=== PATIENT | female | born 1990 | race Caucasian/White ===

== ENCOUNTER 2017-02-08 09:40 | Outpatient (CLI) | payer OTHER ==
[~2017-02-08] VITALS: Ht 162.6 cm; Wt 82.8 kg
[~2017-02-08 09:40] MED LIST: IBUP-1542 PO; PREN1TAB74 PO
[2017-02-08 09:57] VITALS: BP 116/72; PULSE 78; Ht 162.6 cm; Wt 82.8 kg
[2017-02-08 11:37] LABS: ADD UMIC YES; UR ASCORBIC ACID NEGATIVE (NEGATIVE); UR BACTERIA FEW /HPF (NONE SEEN); UR BILIRUBIN (Dip) NEGATIVE (NEGATIVE); UR BLOOD (Dip) 2+ mg/dL (NEGATIVE); UR CLARITY SLIGHTLY CLOUDY (CLEAR); UR COLOR YELLOW (YELLOW); UR GLUCOSE (Dip) NEGATIVE (NEGATIVE); UR KETONES (Dip) NEGATIVE (NEGATIVE); UR LEUKOCYTE ESTERASE (Dip) NEGATIVE Leu/ul (NEGATIVE); UR MUCUS FEW /HPF (NONE SEEN); UR NITRITE (Dip) NEGATIVE (NEGATIVE); UR RBC 2 /HPF (0-5); UR SPECIFIC GRAVITY (Dip) 1.023 (1.003-1.030); UR SQUAMOUS EPITHELIAL CELL MODERATE /HPF (FEW); UR TOTAL PROTEIN (Dip) 1+ mg/dl (NEGATIVE); UR UROBILINOGEN (Dip) NEGATIVE (NEGATIVE)
--- NOTE | 2017-02-08 12:35 | RADRPT ---
PROCEDURE: US evaluation of placenta. CLINICAL INDICATION: . Vaginal bleeding. TECHNIQUE: Multiple sonographic images of the gravid uterus were obtained utilizing oh-scale ramonita ging. Sagittal and transverse images were obtained. The images were reviewed on a PACS workstation . The placenta was evaluated. COMPARISON: No prior studies are available for comparison. FINDINGS: There is a single live intrauterine . heart rate is 168 beats per minute. Position is cephalic and placenta is posterior grade II. There is no placenta previa or abruption. IMPRESSION: 1. Placenta is posterior grade II with no abruption or previa. RPTAT: QQ .Anthony Haile MD, MD Date Time Electronically viewed and signed by .Anthony Haile MD, on 02/08/2017 12:34 .R/
--- NOTE | 2017-02-08 14:56 | CONS ---
Date/Time of Note Date/Time of Note DATE: 02/08/17 TIME: 14:50 Consultation Date/Type/Reason Admit Date/Time February 08, 2017 OB triage consult Reason for Consultation This patient is a 26 years old 2 para 1 with estimated date of confinement of March 26, 2017 which makes her 33 weeks and 3 days today She came to triage complaining of a slight vaginal bleeding no complaint of pain contractions. So for her was uneventful On examination she is a well-developed well-nourished woman in her late stage her vital signs are basically normal with blood pressure 116/70, 2 pulse rate 78 respiration 18 and temperature 98.1,,, Laboratory Tests Test 02/08/17 10:00 Urine Color YELLOW Urine Clarity SLIGHTLY CLOUDY Urine pH 7.0 Urine Specific [place] 1.023 Urine Ketones NEGATIVEmg/dL Urine Nitrite NEGATIVEmg/dL Urine Bilirubin NEGATIVEmg/dL Urine Urobilinogen NEGATIVEmg/dL Urine Leukocyte Esterase NEGATIVELeu/ul Urine Microscopic RBC 2/HPF Urine Microscopic WBC 2/HPF Urine Squamous Epithelial Cells MODERATE/HPF Urine Bacteria FEW/HPF Urine Mucus FEW/HPF Urine Hemoglobin 2+mg/dL Urine Glucose NEGATIVEmg/dL Urine Total Protein 1+mg/dl Eyes: No discharge, No no complaints, No other, No pain, No redness, No visual change ENT: No bleeding, No congestion, No discharge, No dysphagia, No no complaints, No other, No pain, No sore throat Respiratory: No cough, No no complaints, No other, No pain, No pleuritic pain, No shortness of breath, No sputum, No wheezing Cardiovascular: No chest pain, No edema, No lightheadedness, No no complaints, No orthopenea, No other, No palpitations, No paroxysmal nocturnal dyspnea Gastrointestinal: No blood, No constipation, No decreased appetite, No diarrhea , No flatus, No nausea, No no complaints, No other, No pain, No passing stool, No vomiting Genitourinary: other (Pelvic examination was not performed due to possibility of placenta previa), No bleeding, No discharge, No dysuria, No flank pain, No hematuria, No no complaints Musculoskeletal: No back pain, No bone/joint pain, No neck pain, No no complaints, No other, No restricted range of motion, No swelling Skin: No bruising, No erythema, No laceration, No no complaints, No other, No pruritis, No rash, No skin lesions Neurologic: other (Knee-jerk reflexes normal), No confusion, No dizziness, No focal-weakness, No headache, No no complaints , No seizure, No syncope Endocrine: No dry skin, No no complaints, No other, No polydypsia, No polyuria , No temp intolerance Lymphatic: No adenopathy, No lymphadema, No no complaints, No other, No tender nodes Additional Comments We ordered a urinalysis result is basically normal with 1+ protein and 2+ blood which is which is the patient's main complaint other part of the tests of the urinalysis was reported normal. On ultrasound study report is a single live intrauterine with heart tone 168 bpm in cephalic presentation grade 2 placenta no evidence of placenta previa or abruption was reported Disposition. With these normal findings patient was informed that there is no evidence of placenta previa and no danger at this time her contractions scattered on a regular no true evidence of labor Patient was discharged home to be followed in her obstetricians clinic and to return to triage in case of a bleeding rupture of membrane or uterine contraction Social History Smoking Status: Never smoker Exam/Review of Systems Vital Signs Vitals Vital Signs Date Time Temp Pulse Resp B/P Pulse Ox O2 Delivery O2 Flow Rate FiO2 02/08/17 09:57 98.1 78 116/72 Results Results 24 hrs Laboratory Tests Test 02/08/17 10:00 Urine Color YELLOW Urine Clarity SLIGHTLY CLOUDY A Urine pH 7.0 Urine Specific [place] 1.023 Urine Ketones NEGATIVE Urine Nitrite NEGATIVE Urine Bilirubin NEGATIVE Urine Urobilinogen NEGATIVE Urine Leukocyte Esterase NEGATIVE Urine Microscopic RBC 2 Urine Microscopic WBC 2 Urine Squamous Epithelial Cells MODERATE Urine Bacteria FEW A Urine Mucus FEW A Urine Hemoglobin 2+ H Urine Glucose NEGATIVE Urine Total Protein 1+ H AMY EPPS MD Feb 08, 2017 14:55
--- NOTE | 2017-02-08 14:59 | TRIAGE ---
OB Triage Datetime Report Generated by CPN: 02/08/2017 14:59 Datetime: 02/08/2017 14:40 Stage of : OB Triage Datetime: 02/08/2017 13:41 Labor Evaluation Frequency: 0 Monitor Mode: External Pattern: Normal: <= 5 Contractions in 10 Minutes Resting Tone [place]: Relaxed Heart Rate FHR Baseline Rate: 135 Monitor Mode: External US Variability: Moderate 6-25 bpm Accelerations: 10X10 Decelerations: None Category: Category I Pain Assessment Pain Scale: 1 Pain Presence: None/Denies Pain Type: N/A Pain Goal: 3 Datetime: 02/08/2017 12:42 Labor Evaluation Frequency: 0 Monitor Mode: External Resting Tone [place]: Relaxed Heart Rate FHR Baseline Rate: 135 Monitor Mode: External US Variability: Moderate 6-25 bpm Accelerations: 10X10 Decelerations: None Category: Category I Pain Assessment Pain Scale: 4 Pain Presence: Intermittent Pain Type: Cramping Pain Location: Perineum Pain Goal: 3 Pain Relief Measures: Comfort Measures Datetime: 02/08/2017 11:50 Labor Evaluation Frequency: X1 Monitor Mode: External Duration (sec)2399: 50 Quality: Mild Pattern: Normal: <= 5 Contractions in 10 Minutes Resting Tone [place]: Relaxed Heart Rate FHR Baseline Rate: 125 Monitor Mode: External US Variability: Moderate 6-25 bpm Accelerations: 15X15 Decelerations: None Category: Category I Pain Assessment Pain Scale: 4 Pain Goal: 3 Datetime: 02/08/2017 10:51 Labor Evaluation Frequency: 0 Monitor Mode: External Pattern: Normal: <= 5 Contractions in 10 Minutes Resting Tone [place]: Relaxed Heart Rate FHR Baseline Rate: 135 Monitor Mode: External US Variability: Moderate 6-25 bpm Accelerations: 10X10 Decelerations: None Category: Category I Pain Assessment Pain Scale: 4 Pain Goal: 3 Datetime: 02/08/2017 10:42 Stage of : OB Triage Datetime: 02/08/2017 10:19 Stage of : OB Triage Datetime: 02/08/2017 09:51 Stage of : OB Triage Assessment Type: Triage EGA: 33.3 Maternal Assessment Level of Consciousness: Fully Conscious DTR's/Clonus: DTRs 2+; No Clonus Headache: Denies Blurred Vision: No Respiratory Effort: Unlabored; Regular Rhythm; Equal Expansion Breath Sounds, Left: Clear and Equal Breath Sounds, Right: Clear and Equal Nausea/Vomiting: Denies RUQ Epigastric Pain: Denies Facial Edema: None Temperature Route: Axillary Fall Risk Assessment History of Falling: (0) No Secondary Diagnosis: (0) No Ambulatory Aid: (0) Bedrest/Nurse Assist IV Therapy: (0) No Gait: (0) Normal/Bedrest/Immobile Mental Status: (0) Oriented to Own Ability Fall Score: 0 Fall Risk Score Definition: No Risk: No action required Labor Evaluation Frequency: 0 Monitor Mode: External Pattern: Normal: <= 5 Contractions in 10 Minutes Resting Tone [place]: Relaxed Heart Rate FHR Baseline Rate: 135 Monitor Mode: External US Variability: Moderate 6-25 bpm Accelerations: 10X10 Decelerations: None Category: Category I Pain Assessment Pain Scale: 4 Pain Presence: Intermittent Pain Type: Cramping Pain Location: Perineum Pain Goal: 3 Pain Relief Measures: Comfort Measures Datetime: 02/08/2017 09:50 Time of Arrival: 02/08/2017 09:30 Arrived By: Ambulatory Arrived From: Home Chief Complaint: LOWER ABDOMINAL CRAMPING X 2 DAYS, PASSED SM RED CLOT THIS AM. DENIES LEAKING Movement: Present Contractions: Occasional Rupture of Membranes: Denies Vaginal Bleeding: Small Vaginal Discharge: Present Recent Sexual Intercouse: Denies Abdominal Trauma: Not Applicable Patient Complaints: Cramping Time Provider Notified: 02/08/2017 10:19 Provider Notified: KARLI Initial Plan: MONITOR, VAGINAL U/S FOR PLACENTA, U/A
== END 2017-02-08 14:50 | disposition home or self-care (01) ==
LOC: OBT 09:40 → L-D 09:41 → OBT 14:50
PROVIDERS: ATTEND Obstetrics & Gynecology
DX: O46.8X3 Other antepartum hemorrhage, third trimester (principal)
CPT/HCPCS: 76815; 76817; 81001; Z7500; G0463

== ENCOUNTER 2017-02-13 03:13 | Inpatient (IN) | payer OTHER ==
[~2017-02-13] VITALS: Ht 162.6 cm; Wt 84.9 kg
[~2017-02-13 03:13] MED LIST changes: -IBUP-1542 PO
[2017-02-13 03:38] VITALS: Ht 162.6 cm; Wt 84.9 kg
[2017-02-13 04:19] VITALS: BP 130/73; PULSE 78; RESP 22
--- NOTE | 2017-02-13 04:46 | PN ---
Triage Information Date/Time January 13, 2017 Reason for visit: Uterine contractions Weeks of Gestation 34 weeks 1 day /Para 2/1 Diabetes: none Additional information C/O contractions and bleeding (brown). No leaking. Pt was here 5 days ago for a similar complaint with red blood and an US showed a posterior placenta w/o a previa or abruption. Pt reports a h/o a uterine fibroid but isn't sure where it is and it is not identified on the 2 US's available in the computer. PMHx: asthma. PSHx: none. POBHx: x 1 at term. NKDA. Objective Vital Signs Date Time Temp Pulse Resp B/P Pulse Ox O2 Delivery O2 Flow Rate FiO2 02/13/17 04:19 98.4 78 22 130/73 Room Air Heart Rate: 130's Heart Rate Comments Baseline 130-140 bpm with accels to 155 bpm. No decels. Contractions: 6-10 Minutes Apart Exam thick/closed/-4 Disposition: Discharge Assessment/Plan A: IUP at 34w 1d. False labor. P: P.O. hydration. Procardia 20 mg p.o. x 1. [place] 5/325 p.o. x 1. If all resolves may d/c pt home. Pt reassured that the blood present is old. MARY ELLEN PEREZ MD Feb 13, 2017 04:46
[2017-02-13] MEDS ORDERED: HYDROCODONE/APAP (5/325) TAB PO ONE (05:00)
[2017-02-13] MEDS ORDERED: NIFEdipine 10 MG CAP PO ONE (05:00)
[2017-02-13] MEDS ORDERED: LACTATED RINGER'S 1,000 ML IV SCH (06:28)
[2017-02-13] MEDS ORDERED: AMPICILLIN 2 GM/NS (PMX) 100 ML IV ONE (06:30)
[2017-02-13] MEDS ORDERED: MAGNESIUM SULFATE 4 GM/100 ML 100 ML IV ONE (06:30)
[2017-02-13] MEDS: BETAMET NA PHOS/AC(6 MG/ML) 5ML INJ IM SCH (06:56)
[2017-02-13] MEDS: MAGNESIUM SULFATE 20 GM/500 ML 500 ML IV SCH ×2 (07:27→17:12)
[2017-02-13] MEDS: LACTATED RINGER'S 1,000 ML IV SCH ×2 (07:27→17:14)
[2017-02-13] MEDS ORDERED: MEPERIDINE 25 MG INJ IV PRN (09:30)
[2017-02-13 10:20] LABS: BASOPHILS % 0.2 % (0.0-2.0); EOSINOPHILS % 0.1 % (0.0-7.0); HEMATOCRIT 35.7 % (37.0-47.0); HEMOGLOBIN 12.2 g/dl (12.0-16.0); LYMPHOCYTES # 1.8 10^3/ul (0.8-2.9); LYMPHOCYTES % 20.1 % (15.0-51.0); MEAN CORPUSCULAR HEMOGLOBIN 31.6 pg (29.0-33.0); MEAN CORPUSCULAR HGB CONC 34.2 g/dl (32.0-37.0); MEAN CORPUSCULAR VOLUME 92.5 fl (82.0-101.0); MEAN PLATELET VOLUME 11.2 fl (7.4-10.4); MONOCYTE # 0.3 10^3/ul (0.3-0.9); MONOCYTES % 3.3 % (0.0-11.0); NEUTROPHIL # 6.8 10^3/ul (1.6-7.5); NEUTROPHILS % 75.3 % (39.0-77.0); PLATELET COUNT 205 10^3/UL (140-415); RED BLOOD COUNT 3.86 10^6/ul (4.20-5.40); RED CELL DISTRIBUTION WIDTH 12.8 % (11.5-14.5); WHITE BLOOD COUNT 9.1 10^3/ul (4.8-10.8)
[2017-02-13 10:25] LABS: INR 0.89; PT RATIO 0.9
[2017-02-13 10:26] LABS: PARTIAL THROMBOPLASTIN TIME 31.2 Sec (25.0-35.0)
[2017-02-13] MEDS ORDERED: OXYTOCIN 30 UNITS/LR 500 ML IV SCH ×2 (10:30)
[2017-02-13] MEDS ORDERED: HYDROCODONE/APAP (5/325) TAB PO PRN (10:30)
[2017-02-13] MEDS ORDERED: LIDOCAINE 1% (MPF) 30 ML INJ INJ PRN (10:30)
[2017-02-13] MEDS ORDERED: IBUPROFEN 600 MG TAB PO PRN (10:30)
[2017-02-13] MEDS: AMPICILLIN 1 GM/NS (PMX) 50 ML IV SCH ×4 (11:10→18:38)
[2017-02-13] MEDS: ACETAMINOPHEN 325 MG TAB PO PRN (17:14)
--- NOTE | 2017-02-13 20:11 | HP ---
Date/Time of Note Date/Time of Note DATE: 02/13/17 TIME: 20:08 OB - History Hx of Present Free Text/Dictation Admitted for complaint of uterine contractions started on day of admission Chief Complaint: Liver contractions Estimated Due Date: Mar 26, 2017 : 2 Para: 1 Care: Good Care Ultrasounds: Normal mid trimester US Obstetrical Complications: None Medical Complications: None Past Family/Social History * Past Medical, Surgical, Family and Obstetric Histories reviewed from chart. Blood Type: O+ Rubella: immune RPR/VDRL: Negative GBS Status: Unknown HBsAG: Negative OB Admission Exam Vital Signs Vital Signs Vital Signs Date Time Temp Pulse Resp B/P Pulse Ox O2 Delivery O2 Flow Rate FiO2 02/13/17 04:19 98.4 78 22 130/73 Room Air Physical Exam HEENT: WNL Heart: Rhythm Normal Lungs: Clear, Equal Abdomen: WNL Extremities: Normal Reflexes: Normal Cervical Dilatation: 3cm Effacement: 25% Station: -3 Membranes: Intact Heart Rate: 140's Accelerations: Accelerations Present Decelerations: No Decelerations Varibility: Marked Contractions on Admission: < 5 Minutes Apart Date/Time Contractions Began: 02/13/2017 02:30 Frequency of Contractions: q3 Intensity: Firm Last 72 hours Lab Results CBC & BMP 02/13/17 06:50 Magnesium Level Test 02/13/17 12:37 02/13/17 17:45 Magnesium Level 4.9 H 5.6 *H OB Assessment/Plan Reason for admission: labor Other Assessment: labor at 34 weeks Patient apparently change cervix in hospital Other plan: Patient already started on magnesium sulfate tocolysis SETH MARTELL MD Feb 13, 2017 20:11
[2017-02-14] MEDS: MAGNESIUM SULFATE 20 GM/500 ML 500 ML IV SCH ×3 (02:23→22:05)
[2017-02-14] MEDS: BETAMET NA PHOS/AC(6 MG/ML) 5ML INJ IM SCH (06:34)
[2017-02-14] MEDS: LACTATED RINGER'S 1,000 ML IV SCH ×2 (06:34→19:32)
--- NOTE | 2017-02-14 13:57 | PN ---
Date/Time of Note Date/Time of Note DATE: 02/14/17 TIME: 13:56 OB Subjective Subjective Subjective No more complaint of uterine contractions and or vaginal bleeding OB Objective Objective Objective Vital signs stable General physical exam is normal On electronic monitoring no uterine contractions seen heart tones are reactive OB Assessment/Plan Reason for admission: labor Other Assessment: 34+ weeks gestation Other plan: We will DC magnesium sulfate and started on p.o. nifedipine SETH Viera MD Feb 14, 2017 13:57
[2017-02-14] MEDS: ACETAMINOPHEN 325 MG TAB PO PRN (19:31)
[2017-02-15] MEDS: MAGNESIUM SULFATE 20 GM/500 ML 500 ML IV SCH (07:45)
[2017-02-15] MEDS: LACTATED RINGER'S 1,000 ML IV SCH (08:16)
[2017-02-15] MEDS: ACETAMINOPHEN 325 MG TAB PO PRN (08:55)
[2017-02-15] MEDS ORDERED: SENNA TAB PO SCH (09:00)
[2017-02-15] MEDS ORDERED: NIFEdipine 10 MG CAP PO SCH (10:00)
[2017-02-15] MEDS: NIFEdipine 10 MG CAP PO SCH ×2 (12:31→17:42)
--- NOTE | 2017-02-15 14:57 | DS ---
Date/Time of Note Date/Time of Note DATE: 02/15/17 TIME: 14:56 Obstetrical Discharge Record Final Diagnosis Final Diagnosis: not delivered Other Final Diagnosis Status post labor Complications Tocolytics: Magnesium Sulfate, Other (Nifedipine) Condition on Discharge Physical Assessment Voiding: Yes Bowel Movement: Yes Breast: Soft, non-tender, Filling Fundus: Other () Abdomen and Incision: Gravid soft bowel sounds present Episiotomy: Not applicable Calf Tenderness: No Patient Condition: Good SETH MARTELL MD Feb 15, 2017 14:57
--- NOTE | 2017-02-15 14:59 | DS ---
Date/Time of Note Date/Time of Note DATE: 02/15/17 TIME: 14:57 Discharge Summary Admission/Discharge Info Admit Date/Time Feb 13, 2017 at 06:30 Discharge Date/Time February 15, 2017 Discharge Diagnosis labor 34 weeks Patient Condition: Good Procedures None Hx of Present Illness 26-year-old female admitted with contractions and had tocolysis of contractions in hospital using magnesium sulfate and afterwards p.o. nifedipine Stay stable on p.o. nifedipine Subsequently discharged home on p.o. nifedipine bed on pelvic rest until delivery Followed as outpatient Hospital Course Uncomplicated Home Meds Reported Medications Vit-Iron Fumarate-FA ( Vitamin Formula) 1 Tab Tablet, 1 TAB PO DAILY, TAB 09/01/15 Discontinued Scripts Ibuprofen* (Ibuprofen*) 600 Mg Tab, 600 MG PO Q6, #20 TAB 0 Refills Prov:SETH MARTELL MD 09/02/15 Follow-up Plan Few days in clinic for follow-up Primary Care Provider Jm Ivey MD Time spent on discharge: > 30 minutes Pending Labs Laboratory Tests Test 02/14/17 17:54 02/15/17 00:36 02/15/17 05:45 Magnesium Level 6.4mg/dl (1.7-2.5) 6.2mg/dl (1.7-2.5) 6.6mg/dl (1.7-2.5) SETH MARTELL MD Feb 15, 2017 14:59
--- NOTE | 2017-02-15 14:59 | PD.PPDC ---
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
[2017-02-15] MEDS ORDERED: NIFE10CA19 PO (15:02)
== END 2017-02-15 18:35 | disposition home or self-care (01) | DRG 780 ==
LOC: L-D 03:13 → OBT 03:13 → L-D 06:30 → OBG 15:54
PROVIDERS: ADMIT Obstetrics & Gynecology; ATTEND Obstetrics & Gynecology
DX: O47.03 False labor before 37 completed weeks of gestation, third trimester (principal); Z3A.34 34 weeks gestation of pregnancy
CPT/HCPCS: 83735; 85025; 85610; 85730; 86592; 86850; 86900; 86901; 87340; G0463; J0290; J0702; J3475; J7120

== ENCOUNTER 2017-02-16 06:28 | Inpatient (IN) | payer OTHER ==
[~2017-02-16] VITALS: Ht 162.6 cm; Wt 86.9 kg
[~2017-02-16 06:28] MED LIST changes: +NIFE10CA19 PO
[2017-02-16 06:40] VITALS: Ht 162.6 cm; Wt 86.9 kg
[2017-02-16 06:41] VITALS: BP 119/68; PULSE 96; RESP 18
[2017-02-16] MEDS ORDERED: AMPICILLIN 2 GM/NS (PMX) 0 ML ONE (07:10)
[2017-02-16] MEDS ORDERED: IBUPROFEN 600 MG TAB PO PRN (07:30)
[2017-02-16] MEDS ORDERED: OXYTOCIN 30 UNITS/LR 500 ML IV SCH (07:30)
[2017-02-16] MEDS ORDERED: OXYTOCIN 30 UNITS/LR 500 ML IV PRN ×2 (07:30→17:00)
[2017-02-16] MEDS ORDERED: LIDOCAINE 1% (MPF) 30 ML INJ INJ PRN (07:30)
[2017-02-16] MEDS ORDERED: MISOPROSTOL 200 MCG TAB PR PRN ×2 (07:30→17:00)
[2017-02-16] MEDS ORDERED: CARBOPROST 250 MCG INJ IM PRN ×2 (07:30→17:00)
[2017-02-16] MEDS ORDERED: AMPICILLIN 2 GM/NS (PMX) 100 ML IV ONE (07:30)
[2017-02-16] MEDS ORDERED: LACTATED RINGER'S 1,000 ML IV PRN (07:30)
[2017-02-16] MEDS ORDERED: METHYLERGONOVINE 0.2 MG INJ IM PRN ×2 (07:30→17:00)
[2017-02-16] MEDS: LACTATED RINGER'S 1,000 ML IV SCH ×2 (07:36→15:09)
[2017-02-16 07:45] LABS: BASOPHIL # 0.1 10^3/ul (0.0-0.1); BASOPHILS % 0.7 % (0.0-2.0); EOSINOPHILS % 0.2 % (0.0-7.0); HEMATOCRIT 38.3 % (37.0-47.0); HEMOGLOBIN 13.3 g/dl (12.0-16.0); LYMPHOCYTES # 2.5 10^3/ul (0.8-2.9); MEAN CORPUSCULAR HEMOGLOBIN 32.1 pg (29.0-33.0); MEAN CORPUSCULAR HGB CONC 34.7 g/dl (32.0-37.0); MEAN CORPUSCULAR VOLUME 92.5 fl (82.0-101.0); MEAN PLATELET VOLUME 10.8 fl (7.4-10.4); MONOCYTE # 0.5 10^3/ul (0.3-0.9); MONOCYTES % 5.4 % (0.0-11.0); NEUTROPHIL # 6.2 10^3/ul (1.6-7.5); NEUTROPHILS % 63.8 % (39.0-77.0); NUCLEATED RED BLOOD CELLS # 0.1 10^3/ul (0.0-0.0); NUCLEATED RED BLOOD CELLS% 0.6 /100WBC (0.0-0.0); PLATELET COUNT 233 10^3/UL (140-415); RED BLOOD COUNT 4.14 10^6/ul (4.20-5.40); RED CELL DISTRIBUTION WIDTH 12.9 % (11.5-14.5); WHITE BLOOD COUNT 9.7 10^3/ul (4.8-10.8)
[2017-02-16] MEDS ORDERED: FENTAnyl 2MCG/ML-ROPIV 0.2% 100 ML ONE (07:48)
[2017-02-16 07:57] LABS: INR 0.87; PARTIAL THROMBOPLASTIN TIME 28.2 Sec (25.0-35.0); PROTIME 11.8 Sec (12.2-14.2); PT RATIO 0.9
[2017-02-16] MEDS ORDERED: NALOXONE (0.4 MG/ML) INJ IV PRN (08:00)
[2017-02-16] MEDS ORDERED: BETAMET NA PHOS/AC(6 MG/ML) 5ML INJ IM STA (09:17)
[2017-02-16] MEDS: FENTAnyl 2MCG/ML-ROPIV 0.2% 100 ML BAG EPI SCH ×2 (09:28→13:30)
[2017-02-16] MEDS ORDERED: MINERAL OIL LIGHT 10 ML VIAL TOP ONE (09:30)
[2017-02-16] MEDS ORDERED: AMPICILLIN 1 GM/NS (PMX) 50 ML IV SCH (12:00)
[2017-02-16] MEDS: OXYTOCIN 30 UNITS/LR 500 ML IV SCH ×3 (15:21→17:55)
--- NOTE | 2017-02-16 15:32 | HP ---
Date/Time of Note Date/Time of Note DATE: 02/16/17 TIME: 15:28 OB - History Hx of Present Free Text/Dictation 26-year-old female at 34 weeks gestation complaining of onset of uterine contractions at 0 500 a.m. She had history of labor and had multiple hospital admissions She also has history of shortness of short cervix Chief Complaint: Liver contractions Last Menstrual Period: Jun 19, 2016 Estimated Due Date: Mar 26, 2017 : 2 Para: 1 Care: Good Care Ultrasounds: Normal mid trimester US Obstetrical Complications: Other ( labor and short cervix) Medical Complications: None Past Family/Social History * Past Medical, Surgical, Family and Obstetric Histories reviewed from chart. Blood Type: O+ Rubella: immune RPR/VDRL: Negative GBS Status: Unknown HBsAG: Negative OB Admission Exam Vital Signs Vital Signs Vital Signs Date Time Temp Pulse Resp B/P Pulse Ox O2 Delivery O2 Flow Rate FiO2 02/16/17 06:41 98.4 96 18 119/68 Room Air Physical Exam HEENT: WNL Heart: Rhythm Normal Lungs: Clear, Equal Abdomen: WNL Extremities: Normal Reflexes: Normal Cervical Dilatation: 6cm Effacement: 75% Station: -2 Membranes: Intact Heart Rate: 140's Accelerations: Accelerations Present Decelerations: No Decelerations Varibility: Moderate Contractions on Admission: < 5 Minutes Apart Date/Time Contractions Began: February 16, 2017 at 5:00 AM Frequency of Contractions: Every 5 minutes Duration: Over 6 seconds Intensity: Firm Last 72 hours Lab Results CBC & BMP 02/16/17 06:50 OB Assessment/Plan Reason for admission: labor Other Assessment: 34 weeks gestation Other plan: Hello spontaneous labor to proceed IV antibiotic Rescue dose steroids SETH MARTELL MD Feb 16, 2017 15:32
--- NOTE | 2017-02-16 15:34 | LDN ---
Date/Time of Note Date/Time of Note DATE: 02/16/17 TIME: 15:32 Delivery Summary Normal spontaneous vaginal delivery of a viable over intact perineum Weeks of Gestation 34 Placenta Delivered: Spontaneously, Intact & Complete (Patient appears to have placental abruption with blood on the maternal surface of placenta present) Meconium: none Episiotomy: No Perineal laceration: 2 Laceration repair: Second-degree perineal laceration was repaired in layers with 2-0 Vicryl and 2-0 chromic Anesthesia type: Epidural Estimated blood loss: 400 Sponge & Needle done & correct: Yes All needle counts correct: Yes Any foreign bodies felt in the: No Problems: Infant Delivery Information Sex Sex: male Apgars 1 Minute: 8 5 Minute: 9 Suctioning Nose & mouth suctioned at sadaf: Yes Delee suction performed: No Umbilical Cord Umbilical cord with: 3 Vessels Cord presentations: no nuchal cord Cord Blood was obtained: Yes Mother & Baby Disposition Disposition Mom & Baby to Maternity; Good: Yes (Mother was recovered in good condition, baby was transferred to ICU) Mom transferred to: Other (Maternity) Baby to NICU: Yes SETH MARTELL MD Feb 16, 2017 15:34
[2017-02-16] MEDS: LACTATED RINGER'S 1,000 ML IV* SCH (16:59)
[2017-02-16] MEDS ORDERED: HYDROCODONE/APAP (5/325) TAB PO PRN ×2 (17:00)
[2017-02-16] MEDS ORDERED: DIBUCAINE 1% 30 GM OINT PR PRN (17:00)
[2017-02-16] MEDS ORDERED: WITCH HAZEL/GLYCERIN PAD PR PRN (17:00)
[2017-02-16] MEDS ORDERED: LANOLIN 7 GM TUBE TOP PRN (17:00)
[2017-02-16] MEDS ORDERED: ZOLPIDEM 5 MG TAB PO PRN (17:00)
[2017-02-16] MEDS ORDERED: BENZOCAINE 20% 56 ML SPRAY TOP PRN (17:00)
[2017-02-16 17:20] VITALS: BP 124/78; PULSE 60; RESP 16
[2017-02-16] MEDS: IBUPROFEN 600 MG TAB PO SCH ×2 (18:00→23:10)
[2017-02-16] MEDS: CEPHALEXIN 500 MG CAP PO SCH ×2 (18:18→23:14)
[2017-02-16 20:00] VITALS: BP 111/58; PULSE 70; RESP 20
[2017-02-16] MEDS: SENNA/DOCUSATE NA (8.6MG/50MG) TAB PO SCH (23:10)
[2017-02-16] MEDS: MAGNESIUM HYDROXIDE 30ML CUP PO SCH (23:10)
[2017-02-17] VITALS: BP 110/60; PULSE 72; RESP 20
[2017-02-17] MEDS: LACTATED RINGER'S 1,000 ML IV* SCH (00:59)
[2017-02-17 04:00] VITALS: BP 117/61; PULSE 61; RESP 20
[2017-02-17] MEDS: CEPHALEXIN 500 MG CAP PO SCH ×3 (06:23→18:23)
[2017-02-17] MEDS: IBUPROFEN 600 MG TAB PO SCH ×3 (06:23→18:23)
[2017-02-17 08:00] VITALS: BP 125/70; PULSE 67; RESP 18
[2017-02-17 08:20] LABS: BASOPHILS % 0.3 % (0.0-2.0); EOSINOPHILS % 0.1 % (0.0-7.0); HEMATOCRIT 24.9 % (37.0-47.0); HEMOGLOBIN 8.2 g/dl (12.0-16.0); LYMPHOCYTES # 2.3 10^3/ul (0.8-2.9); LYMPHOCYTES % 21.6 % (15.0-51.0); MEAN CORPUSCULAR HEMOGLOBIN 30.9 pg (29.0-33.0); MEAN CORPUSCULAR HGB CONC 32.9 g/dl (32.0-37.0); MEAN PLATELET VOLUME 10.6 fl (7.4-10.4); MONOCYTE # 0.5 10^3/ul (0.3-0.9); NEUTROPHIL # 7.5 10^3/ul (1.6-7.5); NEUTROPHILS % 71.6 % (39.0-77.0); PLATELET COUNT 176 10^3/UL (140-415); RED BLOOD COUNT 2.65 10^6/ul (4.20-5.40); RED CELL DISTRIBUTION WIDTH 12.9 % (11.5-14.5); WHITE BLOOD COUNT 10.5 10^3/ul (4.8-10.8)
[2017-02-17] MEDS: SENNA/DOCUSATE NA (8.6MG/50MG) TAB PO SCH ×2 (10:19→22:51)
[2017-02-17] MEDS: MAGNESIUM HYDROXIDE 30ML CUP PO SCH ×2 (10:19→22:51)
[2017-02-17 17:00] VITALS: BP 124/79; PULSE 66; RESP 18
--- NOTE | 2017-02-17 18:11 | DS ---
Date/Time of Note Date/Time of Note Home today or next day DATE: 02/17/17 TIME: 18:10 Obstetrical Discharge Record Final Diagnosis Final Diagnosis: delivered Other Final Diagnosis Status post vaginal delivery Vaginal Delivery Obstetrical Delivery: Spontaneous, Laceration, Repaired Complications Labor Augmentation: No Induction: No Condition on Discharge Physical Assessment Last Vitals: See nurse's note Voiding: Yes Bowel Movement: Yes Breast: Soft, non-tender, Filling Fundus: Firm Abdomen and Incision: Soft bowel sounds present Episiotomy: Not applicable Calf Tenderness: No Patient Condition: Good SETH MARTELL MD Feb 17, 2017 18:11
--- NOTE | 2017-02-17 18:13 | PD.PPDC ---
S[employer]EN [employer]ER Discharge Instruction Provider Information Physician Information 26-year-old female had delivery at 34 weeks Diagnosis Final Diagnosis: Status post vaginal delivery Condition Patient Condition: Good Diet Diet: Resume Regular Diet Activity/Restrictions Activity: Normal Activity May Shower Restrictions: Nothing in the Vagina Return to Work or School: Apr 02, 2017 Follow-up Follow-up with Physician: 4, Week/Weeks (In clinic) Return to clinic for OB Instructions: Breast Tenderness Depression SETH MARTELL MD Feb 17, 2017 18:13
[2017-02-17] MEDS ORDERED: IBUP-1542 PO (18:14)
[2017-02-17 19:45] VITALS: BP 111/81; PULSE 76; RESP 18
[2017-02-18] MEDS: CEPHALEXIN 500 MG CAP PO SCH ×3 (00:28→13:18)
[2017-02-18] MEDS: IBUPROFEN 600 MG TAB PO SCH ×3 (00:29→13:17)
[2017-02-18 04:00] VITALS: BP 118/74; PULSE 69; RESP 20
[2017-02-18 08:00] VITALS: BP 130/84; PULSE 72; RESP 18
[2017-02-18] MEDS: MAGNESIUM HYDROXIDE 30ML CUP PO SCH (08:41)
[2017-02-18] MEDS: SENNA/DOCUSATE NA (8.6MG/50MG) TAB PO SCH (08:41)
[2017-02-18] MEDS ORDERED: VARICELLA VACCINE LIVE/PF 1,350 UNIT/0.5 ML ML SC* ONE (09:00)
[2017-02-18] MEDS ORDERED: MEASLES,MUMPS,RUBELLA VACCINE INJ SC* ONE (09:00)
[2017-02-18] MEDS ORDERED: DIPHTH/TET/ACEL PERTUSS (ADULT) 0.5 ML VIAL IM* ONE (09:00)
== END 2017-02-18 16:30 | disposition home or self-care (01) | DRG 775 ==
LOC: OBT 06:28 → L-D 06:30 → OBT 07:20 → L-D 07:22 → PP1 17:11
PROVIDERS: ADMIT Obstetrics & Gynecology; ATTEND Obstetrics & Gynecology
PROC: 10E0XZZ Delivery of Products of Conception, External Approach (ICD-10-PCS; principal; 2017-02-16)
PROC: 0KQM0ZZ Repair Perineum Muscle, Open Approach (ICD-10-PCS; 2017-02-16)
PROC: 3E033VJ Introduction of Other Hormone into Peripheral Vein, Percutaneous Approach (ICD-10-PCS; 2017-02-16)
DX: O60.14X0 Preterm labor third trimester with preterm delivery third trimester, not applicable or unspecified (principal); O70.1 Second degree perineal laceration during delivery; Z3A.34 34 weeks gestation of pregnancy; Z37.0 Single live birth
CPT/HCPCS: 62319; 85025; 85610; 85730; 86592; 86900; 86901; 88307; 90715; 90716; 99464; G0463; J0290; J0702; J2590; J3010; J7120